=== PATIENT | female | born 1985 | race Hispanic/Latino ===

== ENCOUNTER 2021-05-06 15:29 | Emergency (ER) | payer OTHER, SELFPAY ==
[2021-05-06] MEDS ORDERED: Dexamethasone 4 MG TAB ONE (17:09)
== END 2021-05-06 18:27 | disposition home or self-care (01) ==
LOC: ERS 15:29
DX: R21 Rash and other nonspecific skin eruption (principal)
CPT/HCPCS: 87081; 87430; 99283; J8540

== ENCOUNTER 2023-10-14 16:36 | Emergency (ER) | payer SELFPAY ==
[2023-10-14] MEDS ORDERED: Ketorolac Tromethamine 30 MG/ML VIAL ONE (17:39)
[2023-10-14 17:52] LABS: Bacteria/HPF None Seen HPF (None Seen); Bilirubin Negative (Negative); Blood, Urine 3+ (Negative); CAUTI Indications for Culture Pelvic or flank pain; Clarity Clear (Clear); Glucose, Urine (Dipstick) Normal (Negative); Ketone, Urine Negative (Negative); Leukocyte 250 Leu/uL (Negative); Nitrite Negative (Negative); Protein, Urine (Dipstick) 30 mg/dL (Neg-Trace); RBC/HPF 0-3 HPF (0-3); Specific Gravity, Urine 1.026 (1.002-1.036); Squamous Epithelial 0-3 HPF (0-3); Urobilinogen Normal mg/dL (Less than 2)
[2023-10-14 17:55] LABS: Urine Culture Reflex No No
[2023-10-14 18:20] LABS: SARS-CoV-2 NAA Rapid Test Not Detected (NotDetected)
[2023-10-14 18:37] LABS: #Monocytes 0.5 thou/uL (0.11-0.59); #Neutrophils 3.2 thou/uL (1.40-6.50); %Basophils 0.2 % (0.0-1.0); %Eosinophils 0.4 % (0.0-10.0); %Lymphocytes 24.3 % (21.0-51.0); %Monocytes 10.7 % (0.0-10.0); %Neutrophils 64.2 % (42.0-75.0); Hematocrit 37.2 % (36.0-47.0); Hemoglobin 12.2 g/dL (12.0-16.0); Mean Corpuscular HGB CONC 32.8 g/dL (32.0-36.0); Mean Corpuscular Hemoglobin 29.8 pg (27.0-31.0); Mean Platelet Volume 9.3 fL (7.4-10.4); Platelet Count 195 10x3/uL (130-400); RBC Distribution Width 12.6 % (11.5-14.5); Red Blood Cell (RBC) Count 4.09 mill/uL (4.20-5.40)
[2023-10-14 19:08] LABS: ALT (SGPT) 50 U/L (8-55); AST (SGOT) 40 U/L (5-34); Albumin 3.3 g/dL (3.5-5.0); Alkaline Phosphatase 67 U/L (40-110); Anion Gap 11 mmol/L (10-20); BUN (Urea Nitrogen) 10 mg/dL (7.0-18.7); Bilirubin, Total 0.2 mg/dL (0.2-1.2); Calc. Creatinine Clearance 0 mL/min (70-130); Calcium 7.6 mg/dL (7.8-10.44); Carbon Dioxide 23 mmol/L (22-29); Chloride 104 mmol/L (98-107); Estimated GFR 98; Globulin 3.2 g/dL (2.4-3.5); Glucose 106 mg/dL (70-105); Lipase 62 U/L (8-78); Potassium 3.3 mmol/L (3.5-5.1); Protein, Total 6.5 g/dL (6.0-8.3); Sodium 135 mmol/L (136-145)
[2023-10-14] MEDS ORDERED: Potassium Chloride 20 MEQ TAB ONE (19:13)
== END 2023-10-14 20:10 | disposition home or self-care (01) ==
LOC: ERS 16:36
DX: J10.1 Influenza due to other identified influenza virus with other respiratory manifestations (principal); N64.4 Mastodynia; Z20.822 Contact with and (suspected) exposure to COVID-19
CPT/HCPCS: 36415; 80053; 81001; 83605; 83690; 85025; 87040; 87804; 96374; J1885; U0002

== ENCOUNTER 2025-07-25 12:09 | Emergency (ER) | payer MEDICAID, SELFPAY ==
[~2025-07-25 12:09] MED LIST: Iopamidol-370 76% 500 ML MDV (1 ML CHARGE) ONE
[2025-07-25] MEDS ORDERED: Ibuprofen 800 MG TAB ONE (12:15)
[2025-07-25] MEDS ORDERED: Acetaminophen 500 MG TAB ONE (12:15)
[2025-07-25 13:40] LABS: #Basophils 0.04 10x3/uL (0.0-0.2); #Eosinophils Less than 0.03 10x3/uL (0.0-0.7); #Monocytes 1.17 10x3/uL (0.11-0.59); #Neutrophils 21.31 10x3/uL (1.40-6.50); %Basophils 0.2 % (0.0-1.0); %Eosinophils 0.0 % (0.0-10.0); %Lymphocytes 3.4 % (21.0-51.0); %Monocytes 5.0 % (0.0-10.0); %Neutrophils 90.8 % (42.0-75.0); Hematocrit 34.4 % (36.0-47.0); Hemoglobin 11.3 g/dL (12.0-16.0); Mean Corpuscular Hemoglobin 29.2 pg (27.0-31.0); Mean Corpuscular Volume 88.9 fL (78.0-98.0); Platelet Count 250 10x3/uL (130-400); Red Blood Cell (RBC) Count 3.87 mill/uL (4.20-5.40); White Blood Cell (WBC) Count 23.47 10x3/uL (4.8-10.8)
[2025-07-25 13:53] LABS: BHCG - Serum Negative (NEGATIVE); Pregs Control Background? CLEAR/WHITE (CLR/WHITE); Pregs Control Bar Appear? YES (CONTROL BAR)
[2025-07-25 14:00] LABS: ALT (SGPT) 84 U/L (Less than 34); AST (SGOT) 70 U/L (11-34); Albumin 3.8 g/dL (3.1-4.5); Alkaline Phosphatase 95 U/L (40-110); Anion Gap 13 mmol/L (10-20); BUN (Urea Nitrogen) 11 mg/dL (7.0-18.7); Bilirubin, Total 0.6 mg/dL (0.3-1.2); CK (CPK) 262 U/L (29-168); Calc. Creatinine Clearance 0 mL/min (70-130); Calcium 8.9 mg/dL (7.8-10.44); Carbon Dioxide 24 mmol/L (22-29); Chloride 101 mmol/L (98-107); Globulin 3.7 g/dL (2.4-3.5); Glucose 167 mg/dL (70-105); Potassium 3.7 mmol/L (3.5-5.1); Sodium 134 mmol/L (136-145)
[2025-07-25] MEDS ORDERED: cefTRIAXone (ROCEPHIN) 1 GM VIAL ONE (14:02)
[2025-07-25 16:07] LABS: Bacteria/HPF None Seen HPF (None Seen); CAUTI Indications for Culture Fever or rigors; Glucose, Urine (Dipstick) Normal (Negative); Leukocyte Negative Leu/uL (Negative); Protein, Urine (Dipstick) Negative (Neg-Trace); Specific Gravity, Urine 1.019 (1.002-1.036)
[2025-07-25 16:09] LABS: Urine Culture Reflex No No
[2025-07-25] MEDS ORDERED: Ondansetron PF 4 MG/2 ML Vial ONE (17:19)
== END 2025-07-25 18:09 | disposition home or self-care (01) ==
LOC: ERS 12:09
DX: J18.9 Pneumonia, unspecified organism (principal); R91.1 Solitary pulmonary nodule; N85.00 Endometrial hyperplasia, unspecified
CPT/HCPCS: 71046; 71275; 74177; 80053; 81001; 82550; 83605; 84443; 84484; 84703; 85025; 87040; 87081; 87086; 87428; 87430; 93005; 96365; 96366; 96375; J0696; J2405; Q9967